=== PATIENT | male | born 1990 | race Caucasian/White ===

== ENCOUNTER 2020-01-21 16:28 | Outpatient (CLI) | payer BC ==
--- NOTE | 2020-01-21 17:01 | RAD ---
RADIOGRAPH LEFT ANKLE 3 VIEWS: DATE: 01/21/2020 HISTORY: 29-year-old male with nontraumatic left ankle pain, unable to bear weight. FINDINGS: Ankle mortise is congruent. There is no evidence of fracture. There is no subluxation or dislocation. There are no degenerative changes. Talar dome is maintained. IMPRESSION: No osseous abnormality.
== END 2020-01-21 16:29 | disposition home or self-care (01) ==
LOC: SCSRAD 16:28
PROVIDERS: ATTEND Family Medicine
DX: M25.572 Pain in left ankle and joints of left foot (principal)